=== PATIENT | female | born 1980 | race Caucasian/White ===

== ENCOUNTER 2017-05-29 23:33 | Emergency (ER) | payer BC, SELFPAY ==
[2017-05-29 23:39] VITALS: BP 155/89; PULSE 112; RESP 18; TEMP 36.4; O2SAT 98; BMI 25.8
--- NOTE | 2017-05-30 00:01 | HMH.EDGENADL ---
ED Disposition Clinical Impression: Headache Qualifiers: Headache type: unspecified Headache chronicity pattern: acute headache Intractability: not intractable Qualified Code(s): R51 - Headache Disposition: Home, Self-Care Condition on Discharge: Good Instructions: DI for Headache Additional Instructions: call pcp in am - Critical Care Critical Care Time: No Attestation: On 05/29/17, the high probability of a clinically significant, sudden or life threatening deterioration of the following system(s) required my full and direct attention, intervention and personal management. The time I documented below is in addition to time spent performing reported procedures but includes the following listed in this critical care notation. Medical Decision Making - Medical Records Medical records reviewed: Yes: I reviewed the patient's medical records. Vital Signs: 05/29/17 23:39 Temperature 97.6 F Temperature Source Oral Pulse Rate [Right Radial] 112 H Respiratory Rate 18 Blood Pressure [Right Arm] 155/89 Blood Pressure Mean [Right Arm] 111 Blood Pressure Source [Right Arm] Automatic Cuff Blood Pressure Position [Right Arm] Sitting 02 Sat by Pulse Oximetry 98 Oxygen Delivery Method Room Air - Fahad Inquiry Pt receiving controlled substance: No General Adult HPI - General Chief complaint: PAIN Stated complaint: Migrane Headache Time Seen by Provider: 05/30/17 00:01 Mode of Arrival: Ambulatory Source of Information: Patient, Spouse, Medical Record Limitations: No Limitations Description of Symptoms (Recalled from ER Triage Doc. by RN): PT REPORTS MIGRAINE SINCE 7PM, WITH NAUSEA - History of Present Illness HPI narrative: pt with hx of migraine with acute episode tonight with no new sx and no focal changes with no fever/rash or trauma Onset (ago): hour(s) Location: head Quality: sharp - Related Data Home Medications Medication Instructions Recorded Confirmed No Known Home Medications [No 05/29/17 05/29/17 Known Home Medications] Allergies Allergy/AdvReac Type Severity Reaction Status Date / Time No Known Allergies Allergy Verified 05/29/17 23:48 [facility] History I have reviewed the patient's past medical history: Yes - *Social History Alcohol Intake: never - Psychiatric History Expresses thoughts of harming self/others: None Suicide Plan Description: No Plan ROS Obtained: Yes All systems reviewed & no additional complaints except as noted - Constitutional Denies fever(s) - Eyes Denies change in vision - ENT Denies sore throat - Cardiovascular Denies chest pain - Respiratory Denies cough - Gastrointestinal Denies abdominal pain - Integumentary/Breasts Denies rash - Neurologic Reports headache(s), Denies seizure-like activity, Denies loss of vision, Denies sensory deficit Physical Exam - General General appearance: alert, in no apparent distress - Head Head exam: normocephalic - Eye Eye exam: Present: PERRL, EOMI - ENT ENT exam: Present: normal oropharynx - Neck Neck exam: Present: full ROM - Respiratory Respiratory exam: Absent: respiratory distress - Cardiovascular Cardiovascular exam: Present: regular rate - Abdominal Exam Abdominal exam: Present: soft - Extremities Exam Extremities exam: Present: full ROM - Back Exam Back exam: Present: full ROM - Neurological Exam Neurological exam: Present: alert, oriented X3, CN II-XII intact - Psychiatric Psychiatric exam: Present: normal affect - Skin Skin exam: Present: intact
--- NOTE | 2017-05-30 00:04 | ED_ITS ---
ED Disposition Clinical Impression: Headache Qualifiers: Headache type: unspecified Headache chronicity pattern: acute headache Intractability: not intractable Qualified Code(s): R51 - Headache Disposition: Home, Self-Care Condition on Discharge: Good Instructions: DI for Headache Additional Instructions: call pcp in am - Critical Care Critical Care Time: No Attestation: On 05/29/17, the high probability of a clinically significant, sudden or life threatening deterioration of the following system(s) required my full and direct attention, intervention and personal management. The time I documented below is in addition to time spent performing reported procedures but includes the following listed in this critical care notation. Medical Decision Making - Medical Records Medical records reviewed: Yes: I reviewed the patient's medical records. Vital Signs: 05/29/17 23:39 Temperature 97.6 F Temperature Source Oral Pulse Rate [Right Radial] 112 H Respiratory Rate 18 Blood Pressure [Right Arm] 155/89 Blood Pressure Mean [Right Arm] 111 Blood Pressure Source [Right Arm] Automatic Cuff Blood Pressure Position [Right Arm] Sitting 02 Sat by Pulse Oximetry 98 Oxygen Delivery Method Room Air - Fahad Inquiry Pt receiving controlled substance: No General Adult HPI - General Chief complaint: PAIN Stated complaint: Migrane Headache Time Seen by Provider: 05/30/17 00:01 Mode of Arrival: Ambulatory Source of Information: Patient, Spouse, Medical Record Limitations: No Limitations Description of Symptoms (Recalled from ER Triage Doc. by RN): PT REPORTS MIGRAINE SINCE 7PM, WITH NAUSEA - History of Present Illness HPI narrative: pt with hx of migraine with acute episode tonight with no new sx and no focal changes with no fever/rash or trauma Onset (ago): hour(s) Location: head Quality: sharp - Related Data Home Medications Medication Instructions Recorded Confirmed No Known Home Medications [No 05/29/17 05/29/17 Known Home Medications] Allergies Allergy/AdvReac Type Severity Reaction Status Date / Time No Known Allergies Allergy Verified 05/29/17 23:48 [facility] History I have reviewed the patient's past medical history: Yes - *Social History Alcohol Intake: never - Psychiatric History Expresses thoughts of harming self/others: None Suicide Plan Description: No Plan ROS Obtained: Yes All systems reviewed & no additional complaints except as noted - Constitutional Denies fever(s) - Eyes Denies change in vision - ENT Denies sore throat - Cardiovascular Denies chest pain - Respiratory Denies cough - Gastrointestinal Denies abdominal pain - Integumentary/Breasts Denies rash - Neurologic Reports headache(s), Denies seizure-like activity, Denies loss of vision, Denies sensory deficit Physical Exam - General General appearance: alert, in no apparent distress - Head Head exam: normocephalic - Eye Eye exam: Present: PERRL, EOMI - ENT ENT exam: Present: normal oropharynx - Neck Neck exam: Present: full ROM - Respiratory Respiratory exam: Absent: respiratory distress - Cardiovascular Cardiovascular exam: Present: regular rate - Abdom
== END 2017-05-30 00:26 | disposition home or self-care (01) ==
PROVIDERS: Emergency Provider Emergency Medicine
DX: R51 Headache (principal)
CPT/HCPCS: 96372; 99282; J0595

== ENCOUNTER 2020-05-30 15:28 | Emergency (ER) | payer BC, SELFPAY ==
[2020-05-30 15:40] VITALS: BP 133/87; PULSE 89; RESP 18; TEMP 36.9; O2SAT 98; BMI 29.2
--- NOTE | 2020-05-30 16:36 | HMH.EDUTC ---
[facility] [place] Disposition Clinical Impression: Strep throat Disposition: Home, Self-Care Condition on Discharge: Good Instructions: DI for Strep Throat, Strep Throat Additional Instructions: *Monitor Temp, Over the counter Motrin or Tylenol as directed/as needed Tylenol every 4 hours and Motrin every 6 hours (as long as your family doctor has told you that you can take it) for fever or pain. and straight to ER if unable to lower temp less than 101.0 after medication given *Warm salt water gargles may help to soothe the throat *Throat Lozenges *Warm fluids like tea with honey may help to soothe the throat *Sleep elevated *Humidifier/Vaporizer *If you did not take Penicillin shot or was unable to, start taking antibiotic immediately and make sure that you take it for the FULL length of time although you should start to feel better in 24-48 hours *change toothbrush and toothpaste 24-48 hours after starting to take antibiotics so you do not reinfect yourself Monitor Temp. Tylenol and/or Ibuprofen as needed. ER if fever is no less than 101 despite alternating Tylenol and Ibuprofen * Encourage fluids, water, Gatorade, powerade, pedialyte if infant/toddler/or child *Cold fluids, popsicles and ice cream may feel good on his throat Follow up IMMEDIATELY for new or worsening symptoms or no Noticeable improvement over the next 48-72 hours. 911 for difficulty breathing or swallowing Prescriptions: Amoxicillin [Amoxicillin 500mg Cap] 500 mg PO BID 10 Days #20 cap Transmission Status: Pending to [facility] Referrals: PCP,No [Primary Care Provider] - As needed Time of Disposition: 16:47 Medical Decision Making - Fahad Inquiry Pt receiving controlled substance: No Fahad was queried for this patient: No Vital Signs: 05/30/20 15:40 Temperature 98.4 F Temperature Source Oral Pulse Rate [Left Brachial] 89 Respiratory Rate 18 Blood Pressure [Left Arm] 133/87 Blood Pressure Mean [Left Arm] 102 Blood Pressure Source [Left Arm] Automatic Cuff Blood Pressure Position [Left Arm] Sitting 02 Sat by Pulse Oximetry 98 Oxygen Delivery Method Room Air [facility] HPI - General Stated complaint: burning in chest, strep symptoms Time Seen by Provider: 05/30/20 16:36 Mode of Arrival: Ambulatory Source of Information: Patient Limitations: No Limitations Description of Symptoms (Recalled from Triage Doc. by RN): PATIENT C/O BURNING IN CHEST AND SORE THROAT X 2 DAYS HEENT Symptoms (Recalled from RN notes): Yes Resp Symptoms (Recalled from RN notes): No Skin Symptoms (Recalled from RN notes): No MS Symptoms (Recalled from RN notes): No Functional Status (Recalled from RN notes): WNL - History of Present Illness Provider Complaint: Patient states that she thinks she has strep throat States that she has been having burning feeling in her throat and chest area like she gets when she has strep throat States that today it was worse so she came in to get checked - Related Data Previous Rx's Medication Instructions Recorded Azithromycin [Z-Darwin 250mg Tab*] 250 mg PO UD DOSE PK #6 tab 05/10/19 Brompheniramine/Pseudoephed/Dm 5 ml PO Q6HP PRN #240 syrup 05/10/19 [Bromfed Dm Cough Syrup] predniSONE [Prednisone 20mg 20 mg PO BID 4 Days #8 tab 05/10/19 Tab] Amoxicillin [Amoxicillin 500mg 500 mg PO BID 10 Days #20 cap 05/30/20 Cap] Allergies Allergy/AdvReac Type Severity Reaction Status Date / Time No Known Allergies Allergy Verified 05/29/17 23:48 - Worker's Comp Is this a Worker's Comp case?: No [facility] History - Hepatitis A Screen Drug use history?: No High risk sexual behaviors?: No History of sexually transmitted infection?: No Currently employed?: No Childcare worker?: No Do you have indoor plumbing?: Yes Do you have electricity?: Yes Attestation statement:: This patient has been screened for Hepatitis A risk factors. I have reviewed the patient's past medical history: Yes Medical Hist
[2020-05-30 16:53] VITALS: BP 133/87; PULSE 89; RESP 18; TEMP 36.9; O2SAT 98
[2020-05-30 21:10] LABS: UTC Strep Screen (Rapid) Positive (Negative)
== END 2020-05-30 16:57 | disposition home or self-care (01) ==
PROVIDERS: Emergency Provider Nurse Practitioner
DX: J02.0 Streptococcal pharyngitis (principal); E11.9 Type 2 diabetes mellitus without complications
CPT/HCPCS: 87880; 99202; G0463

== ENCOUNTER 2020-06-03 14:33 | Emergency (ER) | payer BC, SELFPAY ==
[2020-06-03 15:10] VITALS: BP 132/90; PULSE 93; RESP 18; TEMP 36.9; O2SAT 100; BMI 27.4
--- NOTE | 2020-06-03 15:48 | HMH.EDUTC ---
[facility] [place] Disposition Clinical Impression: Encounter for laboratory testing for COVID-19 virus Disposition: Home, Self-Care Condition on Discharge: Good Instructions: DI for COVID-19 (Suspected or Confirmed ), COVID-19: Testing and Tracing, Preventing the Spread of Coronavirus Discharge Instructions Additional Instructions: *Monitor Temp, Over the counter Motrin or Tylenol as directed/as needed Tylenol every 4 hours and Motrin every 6 hours (as long as your family doctor has told you that you can take it) for fever or pain. and straight to ER if unable to lower temp less than 101.0 after medication given *Warm salt water gargles may help to soothe the throat *Throat Lozenges *Warm fluids like tea with honey may help to soothe the throat *Sleep elevated *Humidifier/Vaporizer Follow up IMMEDIATELY for new or worsening symptoms or no Noticeable improvement over the next 48-72 hours. 911 for difficulty breathing or swallowing You were tested for today for COVID19 your test result should be back in the next 24-48 hours, you may call to the [facility] to see if your test results are back in the next 48 hours [phone] [facility] hours are 9am-9pm You was given a handout with instructions for Self Quarantine and Self isolation for while you wait on test results and what to do if they are positive If you are positive the Health Dept will be contacting you also Referrals: PCP,No [Primary Care Provider] - As needed Forms: Work/School Release Time of Disposition: 15:49 Medical Decision Making - Fahad Inquiry Pt receiving controlled substance: No Fahad was queried for this patient: No Vital Signs: 06/03/20 15:10 Temperature 98.4 F Temperature Source Oral Pulse Rate [Right Brachial] 93 H Respiratory Rate 18 Blood Pressure [Right Arm] 132/90 Blood Pressure Mean [Right Arm] 104 Blood Pressure Source [Right Arm] Automatic Cuff Blood Pressure Position [Right Arm] Sitting 02 Sat by Pulse Oximetry 100 Oxygen Delivery Method Room Air Orders (Tests/Meds): ORDERS Category Date Time Status Covid-19 Nasal PCR ([facility]) Routine Lab 06/03/20 13:10 Received [facility] [place] HPI - General Stated complaint: covid test Time Seen by Provider: 06/03/20 15:48 Mode of Arrival: Ambulatory Source of Information: Patient Limitations: No Limitations Description of Symptoms (Recalled from Triage Doc. by RN): PATIENT C/O BODY ACHES, SORE THROAT, FATIGUE, AND NO TASTE/SMELL X 1 WEEK HEENT Symptoms (Recalled from RN notes): No Resp Symptoms (Recalled from RN notes): No Skin Symptoms (Recalled from RN notes): No MS Symptoms (Recalled from RN notes): No Functional Status (Recalled from RN notes): WNL - History of Present Illness Provider Complaint: Patient states that she was dx with strep throat and just finished antiboitics States that she loss her sense of taste and smell about a week ago and thought it may have been due to sinus infection but after and daughter started having similar symptoms she wanted to get tested for COVID - Related Data Allergies Allergy/AdvReac Type Severity Reaction Status Date / Time No Known Allergies Allergy Verified 05/29/17 23:48 - Worker's Comp Is this a Worker's Comp case?: No [facility] History - Hepatitis A Screen Drug use history?: No High risk sexual behaviors?: No History of sexually transmitted infection?: No Currently employed?: No Childcare worker?: No Do you have indoor plumbing?: Yes Do you have electricity?: Yes Attestation statement:: This patient has been screened for Hepatitis A risk factors. I have reviewed the patient's past medical history: Yes Medical History: Reports:: Diabetes Mellitus Type 2 - Social History Alcohol Intake: never Occupational Status: other ROS Obtained: Yes All systems reviewed & no additional complaints, Yes Systems reviewed as appropriate & no additional complaints - Constitutional Constitutional: Reports system reviewed and no additional complaints, except a
[2020-06-03 15:49] VITALS: BP 132/90; PULSE 93; RESP 18; TEMP 36.9; O2SAT 100
--- NOTE | 2020-06-04 10:56 | PC.NURSE ---
PT NOTIFIED OF POSITIVE COVID RESULT
== END 2020-06-03 15:50 | disposition home or self-care (01) ==
PROVIDERS: Emergency Provider Nurse Practitioner
DX: U07.1 COVID-19 (principal)
CPT/HCPCS: 99202; G0463; U0003

== ENCOUNTER 2021-10-24 21:41 | Emergency (ER) | payer BC, SELFPAY ==
[2021-10-24 21:42] VITALS: BP 148/95; PULSE 125; RESP 18; TEMP 36.8; O2SAT 98; BMI 25.0
[2021-10-24 21:58] LABS: Coronavirus 19, PCR Not Detected (NotDetected); Influenza A, PCR Not Detected (NotDetected); Influenza B, PCR Not Detected (NotDetected); Microscopic, Urine URINE MICROSCOPIC (MICROSCOPIC)
--- NOTE | 2021-10-24 21:58 | XR_ITS ---
PROCEDURE INFORMATION: Exam: XR Chest Exam date and time: 10/24/2021 10:20 PM Age: 41 years old Clinical indication: Cough and other: Congestion TECHNIQUE: Imaging protocol: XR of the chest. Views: 2 views. COMPARISON: No relevant prior studies available. FINDINGS: Lungs: No consolidation. Probable small granuloma within RIGHT lung base. Pleural spaces: No significant pleural effusion. No pneumothorax. Heart/Mediastinum: No cardiomegaly. Bones/joints: No displaced fracture. Soft tissues: Unremarkable. Intraperitoneal space: Surgical clips within RIGHT upper quadrant. IMPRESSION: No definite acute cardiopulmonary disease. If symptoms persist, consider CT for further evaluation.
--- NOTE | 2021-10-24 22:45 | HMH.EDSOB ---
ED Disposition Clinical Impression: Bronchitis Disposition: Home, Self-Care Condition on Discharge: Good Instructions: DI for Acute Bronchitis Additional Instructions: fluids and use meds and see pcp for follow up Prescriptions: Benzonatate [Benzonatate 100mg cap] 100 mg PO TID #21 cap Transmission Status: Pending to [facility] levoFLOXacin [Levaquin 500mg tab] 500 mg PO DAILY #7 tab Transmission Status: Pending to [facility] Referrals: Provider,Referral, [Primary Care Provider] - - Critical Care Critical Care Time: No Attestation: On 10/24/21, the high probability of a clinically significant, sudden or life threatening deterioration of the following system(s) required my full and direct attention, intervention and personal management. The time I documented below is in addition to time spent performing reported procedures but includes the following listed in this critical care notation. Medical Decision Making - Medical Records Medical records reviewed: Yes: I reviewed the patient's medical records. - Fahad Inquiry Pt receiving controlled substance: No Vital Signs: 10/24/21 21:42 Temperature 98.3 F Temperature Source Oral Pulse Rate [Right] 125 H Respiratory Rate 18 Blood Pressure [Right Arm] 148/95 H Blood Pressure Mean [Right Arm] 112 02 Sat by Pulse Oximetry 98 - Lab Data Lab results reviewed: Yes: I reviewed the patient's lab results. Lab Results 10/24/21 21:47: Urine Color Yellow, Urine Appearance Clear, Urine pH 5.0, Ur Specific [place] 1.015, Urine Protein Negative, Urine Glucose (UA) 3+, Urine Ketones Negative, Urine Blood Trace-i, Urine Nitrate Negative, Urine Bilirubin Negative, Urine Urobilinogen 0.2, Ur Leukocyte Esterase Negative, Urine RBC Occasional, Urine WBC 3-5, Ur Squamous Epith Cells 10-20, Urine Bacteria 1+ 10/24/21 21:47: SARS-CoV-2 (PCR) Not detected, Influenza A Untype (PCR) Not detected, Influenza Type B (PCR) Not detected Orders (Tests/Meds): ED MEDICATIONS Generic Name Dose Route Start Last Admin Trade Name Freq PRN Reason Stop Dose Admin Benzonatate 100 mg 10/24/21 23:15 Benzonatate 100mg Capsule PO 11/23/21 23:14 ONCE TAMMY Discontinued Medications Generic Name Dose Route Start Last Admin Trade Name Marcos PRN Reason Stop Dose Admin Levofloxacin 500 mg 10/24/21 23:07 Levofloxacin 500mg Tab PO 10/24/21 23:08 ONCE ONE Prednisone 20 mg 10/24/21 23:07 Prednisone 20mg Tab PO 10/24/21 23:08 ONCE ONE ORDERS Category Date Time Status CMP [Comprehensive Metabolic Panel] Stat Lab 10/24/21 22:42 Received Complete Blood Count Auto Diff Stat Lab 10/24/21 22:42 Received Hemoglobin A1C Stat Lab 10/24/21 22:42 Received - Radiology Data #1 Image(s): Chest Image Reviewed: Yes I have reviewed radiologist's interpretation Preliminary Findings: Normal/NAD, Abnormal Medical Decision Narrative: acute bronchitis with cough and diabetes Resp/SOB HPI - General Chief Complaint: Upper Respiratory Infection Stated Complaint: cough and back pain Time Seen by Provider: 10/24/21 22:45 Mode of Arrival: Ambulatory Source of Information: Patient, Spouse, Medical Record Limitations: No Limitations Description of Symptoms (Recalled from ER Triage Doc. by RN): pt c/o cough x 3weeks and today woke up with pain in between shoulder. pt states she feel like she has pneumonia - History of Present Illness prod cough and congestion over the last few weeks with hx of tob use and diabetes MD Complaint: shortness of breath, anxiety Onset (ago): week(s) Severity: moderate Known history of: diabetes Associated symptoms: cough - Related Data Home oxygen amount: none Previous Rx's Medication Instructions Recorded Benzonatate [Benzonatate 100mg 100 mg PO TID #21 cap 10/24/21 cap] levoFLOXacin [Levaquin 500mg 500 mg PO DAILY #7 tab 10/24/21 tab] Allergies
[2021-10-24 22:46] LABS: Appearance,Urine CLEAR (Clear); Bilirubin,Urine Negative (Negative); Blood, Urine TRACE-I (Negative); Color,Urine YELLOW (Yellow); Glucose,Urine (UA) 3+ (Negative); Ketones,Urine Negative (Negative); Leukocyte Esterase,Urine Negative (Negative); Nitrate,Urine Negative (Negative); Protein,Urine Negative (Negative); Specific Gravity, Urine 1.015 (1.005-1.030); Urobilinogen,Urine 0.2 EU/dl (0.2)
[2021-10-24 22:59] LABS: Bacteria,Urine 1+ /lpf; RBC,Urine Occasional #/hpf (0-3)
[2021-10-24 23:07] LABS: Chloride 95 mmol/L (98-107); Potassium 4.1 mmoL/L (3.5-5.1); Sodium 132 mmol/L (136-145)
[2021-10-24 23:08] LABS: Basophils # 0.2 K/mm3 (0-0.2); Basophils % 1.6 % (0.1-2.0); Eosinophils # 0.1 K/mm3 (0.0-0.4); Eosinophils % 1.2 % (0.1-12.0); Hematocrit 46.8 % (37.0-47.0); Hemoglobin 16.4 g/dL (12.2-16.2); Lymphocytes # 3.5 K/mm3 (0.7-4.5); Lymphocytes % 29.7 % (10-50); Mean Corpuscular Hemoglobin 32.4 pg (27.0-31.2); Mean Corpuscular Volume 92.5 fl (81-99); Mean Platelet Volume 10.4 fl (7.4-10.4); Monocytes # 0.5 K/mm3 (0.1-1.0); Monocytes % 4.6 % (1.7-9.3); Neutrophils # 7.3 K/mm3 (1.8-7.8); Neutrophils % 62.9 % (37.0-80.0); Platelet Count 217 K/mm3 (142-424); Red Blood Count 5.06 M/mm3 (4.20-5.40); Red Cell Distribution Width 13.7 % (11.5-17.5); White Blood Count 11.6 K/mm3 (4.8-10.8)
[2021-10-24 23:09] LABS: Alanine Aminotransferase 38 U/L (12-78); Blood Urea Nitrogen 7 mg/dl (7-17); Creatinine Clearance Estimated 162 mL/min (50-200); Estimated Glomerular Filt Rate 137 ml/min (>60); GFR (African American) 166 ML/MIN (>60)
[2021-10-24 23:10] LABS: Albumin Level 4.7 g/dl (3.5-5.0); Albumin/Globulin Ratio 1.4 (1.1-1.8); Alkaline Phosphatase 123 U/L (38-126); Anion Gap 17.1 mEq/L (5-15); Aspartate Amino Transferase 35 U/L (14-36); Bilirubin,Total 0.6 mg/dl (0.2-1.3); Calcium 9.9 mg/dl (8.4-10.2); Carbon Dioxide 24 mmol/L (22.0-30.0); Globulin 3.4 g/dL (1.3-3.2); Glucose 384 mg/dl (74-100); Total Protein,Serum 8.1 g/dl (6.3-8.2)
[2021-10-24 23:22] VITALS: BP 134/74; PULSE 100; RESP 18; TEMP 36.8; O2SAT 98
[2021-10-24 23:27] LABS: Hemoglobin A1C 10.4 % (4.0-6.0)
[2021-10-24 23:39] LABS: HDL Cholesterol 39 mg/dl (40-60)
[2021-10-24 23:49] LABS: Chol/HDL Ratio 11.3 (1-3.5); Cholesterol 439 mg/dl (140-200); Triglycerides 1346 mg/dl (30-150)
[2021-10-24 23:50] LABS: Direct LDL Cholesterol 65.19 mg/dL (100-129)
[2021-10-24 23:58] LABS: Free T4 (Free Thyroxine) 1.16 ng/dl (0.78-2.19)
[2021-10-25 00:11] LABS: Thyroid Stimulating Hormone 1.97 uIU/mL (0.465-4.68)
== END 2021-10-24 23:23 | disposition home or self-care (01) ==
PROVIDERS: Emergency Provider Emergency Medicine
DX: J20.9 Acute bronchitis, unspecified (principal); E11.9 Type 2 diabetes mellitus without complications
CPT/HCPCS: 71046; 80053; 80061; 81001; 83036; 84439; 84443; 85025; 99283; C9803; U0003; U0005

== ENCOUNTER 2022-03-30 14:38 | Emergency (ER) | payer BC, SELFPAY ==
[2022-03-30 14:40] VITALS: BP 160/95; PULSE 149; RESP 18; TEMP 36.7; O2SAT 97; BMI 22.8
[2022-03-30 15:00] VITALS: BP 150/126; PULSE 142; RESP 18; O2SAT 100
--- NOTE | 2022-03-30 15:04 | HMH.EDGENADL ---
Discharge Plan Disposition Patient Disposition: Home, Self-Care Condition: Good Prescriptions Prescriptions: New sulfamethoxazole-trimethoprim [Bactrim DS] 800-160 mg tablet 1 tab PO BID Qty: 20 0RF hydrocodone-acetaminophen 5-325 mg tablet 1 tab PO Q6H PRN (Reason: pain) Qty: 10 0RF No Action levofloxacin 500 MG tablet 500 mg PO DAILY Qty: 7 0RF benzonatate 100 MG capsule 100 mg PO TID Qty: 21 0RF Referrals Follow up/Referrals: Provider,Referral, [Primary Care Provider] - See instructions Activity Restrictions/Add. Instructions Additional Instructions/Restrictions: Bactrim DS as prescribed. [place] as needed for pain. Additional instructions for ABSCESS: Day one and two: Remove the bandage and shower the area, leaving the packing in place. Gently blot dry. Apply a bandage. Day three: Follow-up with primary care physician, clinic, or Urgent Treatment Center for packing removal and culture results. The urgent treatment center is open from 8 AM to 8 PM every day. Return to the emergency department if increasing pain, swelling, redness, red streaks or fever greater than 101 degrees. Additional instructions for CONTROLLED SUBSTANCES: You have been prescribed a medication that is a controlled substance. Controlled substances include pain medications known as opiates and sedative nerve medications known as benzodiazepines. Tramadol, fioricet, and gabapentin are also controlled substances. Some common opiates include: Codeine (such as Tylenol #3) Hydrocodone (Vicodin, Lortab, Lorcet, [place]) Oxycodone (Percocet, Percodan, Oxycodone, Oxy IR) Some common benzodiazepines include: Diazepam (Valium) Lorazepam (Ativan) Alprazolam (Xanax) Clonazepam (Klonopin) Oxazepam (Serax) All of these controlled substances are highly addictive and frequently abused. Misuse can and frequently does lead to addiction as well as overdose and . Medication should be stored in a locked cabinet or other secure storage unit. Do not store the medication in a motor vehicle. Short term supplies, 3 days or less, are prescribed because of the highly addictive nature of the medication. Any of the controlled substance medication NOT taken should be disposed of properly and NOT SAVED. The recommended method of disposing of unused medications is: Place the medicines in a sealable plastic bag. If the medicine is a solid, crush it or add water to dissolve it. Add something undesirable (cat litter, coffee grounds, etc.) Dispose of sealed bag in household trash Do not flush or pour unused medicines down a sink or drain. Controlled substances should not be shared, given away or sold. Because of the addictive nature and frequent abuse, these medications are sometimes stolen. These medications should be kept in a safe place where they cannot be stolen. Do not keep them in your car or purse. Lost or stolen prescriptions for controlled substances WILL NOT BE REFILLED in this emergency department, regardless of whether a police report was filed. Clinical Impressions Clinical Impression: Cutaneous abscess Instructions Patient Instructions: DI for Skin Abscess Discharge ED Provider: Bartolo Moran General Adult HPI General Chief complaint: Skin/Abscess/Foreign Body Stated complaint: Bite under right breast on rib cage Time Seen by Provider: 03/30/22 14:54 Mode of Arrival: Ambulatory Source of Information: Patient Limitations: No Limitations Description of Symptoms (Recalled from ER Triage Doc. by RN): c/o a knot that came up under her right breast 7 days ago that opened up yesterday and had large amout of drainage. Now skin is open around area with black spots noted t/o sore. PT is unsure the cause. States that it has had fever in this area with pain. Pt thought it was boil at first and has been using warm compresses. History of Present Illness HPI narrative: 1 week history of sore on her anteri
[2022-03-30 15:31] VITALS: BP 132/94; PULSE 144; RESP 20; O2SAT 98
[2022-03-30 16:30] VITALS: BP 122/82; PULSE 118; RESP 16; TEMP 36.7; O2SAT 98
[2022-03-30 16:35] VITALS: BP 122/82; PULSE 118; RESP 20; O2SAT 98
== END 2022-03-30 16:31 | disposition home or self-care (01) ==
PROVIDERS: Emergency Provider Emergency Medicine
DX: L02.213 Cutaneous abscess of chest wall (principal); B95.62 Methicillin resistant Staphylococcus aureus infection as the cause of diseases classified elsewhere; Z16.11 Resistance to penicillins; Z16.39 Resistance to other specified antimicrobial drug; E78.5 Hyperlipidemia, unspecified; I10 Essential (primary) hypertension
CPT/HCPCS: 10060; 87070; 87077; 87186; 87205; 99283

== ENCOUNTER → 2022-04-30 13:26 | Outpatient (CLI) | payer BC, SELFPAY ==
[2022-04-30 13:32] LABS: Microscopic, Urine URINE MICROSCOPIC (MICROSCOPIC)
[2022-04-30 14:07] LABS: Basophils # 0.1 K/mm3 (0-0.2); Basophils % 0.7 % (0.1-2.0); Eosinophils # 0.2 K/mm3 (0.0-0.4); Hematocrit 42.9 % (37.0-47.0); Hemoglobin 14.2 g/dL (12.2-16.2); Lymphocytes % 31.6 % (10-50); Mean Corpuscular HGB Conc 33.2 g/dL (31.8-35.4); Mean Corpuscular Hemoglobin 30.7 pg (27.0-31.2); Mean Corpuscular Volume 92.4 fl (81-99); Mean Platelet Volume 9.7 fl (7.4-10.4); Monocytes # 0.5 K/mm3 (0.1-1.0); Monocytes % 4.7 % (1.7-9.3); Neutrophils # 5.9 K/mm3 (1.8-7.8); Platelet Count 175 K/mm3 (142-424); Red Blood Count 4.64 M/mm3 (4.20-5.40); Red Cell Distribution Width 13.7 % (11.5-17.5); White Blood Count 9.6 K/mm3 (4.8-10.8)
[2022-04-30 14:08] LABS: Appearance,Urine CLEAR (Clear); Bilirubin,Urine Negative (Negative); Blood, Urine Negative (Negative); Color,Urine YELLOW (Yellow); Glucose,Urine (UA) TRACE (Negative); Ketones,Urine Negative (Negative); Leukocyte Esterase,Urine Negative (Negative); Nitrate,Urine Negative (Negative); Protein,Urine Negative (Negative); Urobilinogen,Urine 0.2 EU/dl (0.2)
[2022-04-30 14:18] LABS: Hemoglobin A1C 10.4 % (4.0-6.0)
[2022-04-30 14:27] LABS: Bacteria,Urine Trace /lpf; Squamous Epithelial Cell,Urine Occasional #/hpf (0-5)
[2022-04-30 15:56] LABS: Alanine Aminotransferase 20 U/L (12-78); Albumin Level 4.1 g/dl (3.5-5.0); Albumin/Globulin Ratio 1.6 (1.1-1.8); Alkaline Phosphatase 128 U/L (38-126); Anion Gap 13.1 mEq/L (5-15); Aspartate Amino Transferase 18 U/L (14-36); Bilirubin,Total 0.3 mg/dl (0.2-1.3); Blood Urea Nitrogen 12 mg/dl (7-17); Calcium 9.4 mg/dl (8.4-10.2); Carbon Dioxide 30 mmol/L (22.0-30.0); Chloride 100 mmol/L (98-107); Cholesterol 240 mg/dl (140-200); Estimated Glomerular Filt Rate 178 ml/min (>60); GFR (African American) 215 ML/MIN (>60); Globulin 2.6 g/dL (1.3-3.2); Glucose 200 mg/dl (74-100); HDL Cholesterol 30 mg/dl (40-60); Potassium 4.1 mmoL/L (3.5-5.1); Sodium 139 mmol/L (136-145); Total Protein,Serum 6.7 g/dl (6.3-8.2)
[2022-04-30 16:07] LABS: Direct LDL Cholesterol 75.49 mg/dL (100-129)
[2022-04-30 16:15] LABS: Triglycerides 596 mg/dl (30-150)
[2022-04-30 17:04] LABS: Vitamin B12 621 pg/mL (239-931)
[2022-04-30 17:11] LABS: Folate 8.44 ng/mL
== END ==
PROVIDERS: PCP Family Medicine; Visit Provider Family Medicine
DX: E11.9 Type 2 diabetes mellitus without complications (principal); L02.91 Cutaneous abscess, unspecified; E78.5 Hyperlipidemia, unspecified; G47.00 Insomnia, unspecified; G62.9 Polyneuropathy, unspecified; I10 Essential (primary) hypertension; Z79.4 Long term (current) use of insulin
CPT/HCPCS: 36415; 80053; 80061; 81001; 82607; 82746; 83036; 84443; 85025

== ENCOUNTER → 2022-05-07 11:44 | Outpatient (CLI) | payer BC, SELFPAY ==
[2022-05-07 12:49] VITALS: BMI 26.6
== END ==
PROVIDERS: PCP Family Medicine; Visit Provider Family Medicine
DX: E11.9 Type 2 diabetes mellitus without complications (principal); Z71.3 Dietary counseling and surveillance
CPT/HCPCS: 97802

== ENCOUNTER → 2022-08-09 12:08 | Outpatient (CLI) | payer BC, SELFPAY ==
[2022-08-09 13:09] LABS: Alanine Aminotransferase 28 U/L (12-78); Albumin Level 4.3 g/dl (3.5-5.0); Albumin/Globulin Ratio 1.8 (1.1-1.8); Alkaline Phosphatase 78 U/L (38-126); Anion Gap 11.4 mEq/L (5-15); Aspartate Amino Transferase 22 U/L (14-36); Bilirubin,Total 0.5 mg/dl (0.2-1.3); Blood Urea Nitrogen 10 mg/dl (7-17); Calcium 9.1 mg/dl (8.4-10.2); Carbon Dioxide 29 mmol/L (22.0-30.0); Chloride 100 mmol/L (98-107); Chol/HDL Ratio 5.6 (1-3.5); Cholesterol 271 mg/dl (140-200); Estimated Glomerular Filt Rate 137 ml/min (>60); GFR (African American) 166 ML/MIN (>60); Globulin 2.4 g/dL (1.3-3.2); Glucose 140 mg/dl (74-100); HDL Cholesterol 48 mg/dl (40-60); Potassium 4.4 mmoL/L (3.5-5.1); Sodium 136 mmol/L (136-145); Total Protein,Serum 6.7 g/dl (6.3-8.2); Triglycerides 304 mg/dl (30-150); VLDL Cholesterol 61 mg/dL (0-40)
[2022-08-09 13:19] LABS: Direct LDL Cholesterol 146.98 mg/dL (100-129)
[2022-08-09 13:33] LABS: Hemoglobin A1C 7.9 % (4.0-6.0)
== END ==
PROVIDERS: PCP Family Medicine; Visit Provider Family Medicine
DX: E11.9 Type 2 diabetes mellitus without complications (principal); E78.5 Hyperlipidemia, unspecified; I10 Essential (primary) hypertension; Z79.4 Long term (current) use of insulin
CPT/HCPCS: 36415; 80053; 80061; 82043; 83036

== ENCOUNTER 2022-10-13 13:59 | Emergency (ER) | payer BC, SELFPAY ==
[2022-10-13 14:10] VITALS: PULSE 125; RESP 18; TEMP 37.2; O2SAT 99; BMI 26.9
--- NOTE | 2022-10-13 14:25 | EXP.UTC ---
Discharge Plan Disposition Patient Disposition: Home, Self-Care Condition: Good Prescriptions Prescriptions: New amoxicillin [amoxicillin] 875 mg tablet 875 mg PO Q12H Qty: 20 0RF No Action pantoprazole [Protonix] 40 mg tablet,delayed release (DR/EC) 40 mg PO DAILY naratriptan 2.5 mg tablet 2.5 mg PO Q4H PRN (Reason: migraine headache) Qty: 10 3RF Rx Instructions: do not exceed 2 doses per 24 hrs nystatin 100,000 unit/gram cream 1 applic topical BID Qty: 30 0RF amitriptyline 25 mg tablet 25 mg PO .COMPLEX Qty: 150 3RF Rx Instructions: 25 mg orally take 1 tablet in the day and 4 tablets at bedtime; acyclovir 400 mg tablet 400 mg PO BID (DME) pen needle, diabetic [BD Ultra-Fine Short Pen Needle] 31 gauge x 5/16 needle See Rx Instructions .ROUTE .COMPLEX Qty: 100 2RF Dose Instruction: USE DIRECTED Rx Instructions: USE DIRECTED insulin glargine [Lantus Solostar U-100 Insulin] 100 unit/mL (3 mL) insulin pen 80 unit SQ HS 90 Days Qty: 72 0RF fenofibrate nanocrystallized [Tricor] 145 mg tablet 145 mg PO DAILY 30 Days Qty: 30 3RF duloxetine 60 mg capsule,delayed release(DR/EC) See Rx Instructions .ROUTE .COMPLEX Qty: 30 2RF Dose Instruction: TAKE ONE CAPSULE BY MOUTH ONCE A DAY Rx Instructions: TAKE ONE CAPSULE BY MOUTH ONCE A DAY lisinopril 20 mg tablet See Rx Instructions .ROUTE .COMPLEX Qty: 30 2RF Dose Instruction: TAKE ONE TABLET BY MOUTH ONCE A DAY Rx Instructions: TAKE ONE TABLET BY MOUTH ONCE A DAY atorvastatin 40 mg tablet See Rx Instructions .ROUTE .COMPLEX Qty: 30 2RF Dose Instruction: TAKE ONE TABLET BY MOUTH ONCE A DAY Rx Instructions: TAKE ONE TABLET BY MOUTH ONCE A DAY Referrals Follow up/Referrals: Michelle Hoover APRN [Primary Care Provider] - See instructions Activity Restrictions/Add. Instructions Additional Instructions/Restrictions: Drink plenty of fluids. Take tylenol or ibuprofen for pain or fever. Take the medications as directed. Follow up with your regular doctor. GO TO THE ER FOR ANY WORSENING SYMPTOMS Throw your tooth brush away and get a new one. Clinical Impressions Clinical Impression: Strep throat Instructions Patient Instructions: Strep Throat, DI for Strep Throat Discharge ED Provider: Max Gonzalez [facility] [place] Stated complaint: Sore throat,Congestion Time Seen by Provider: 10/13/22 14:24 History of Present Illness Provider Complaint: She states that for the past 4 days she has had sore throat, sinus congestion and a cough. Related Data Home Medications Medication Instructions Recorded Confirmed pantoprazole 40 mg tablet,delayed 40 mg PO DAILY 04/03/22 08/29/22 release (Protonix) acyclovir 400 mg tablet 400 mg PO BID 08/29/22 08/29/22 Previous Rx's Medication Instructions Recorded naratriptan 2.5 mg tablet 2.5 mg PO Q4H PRN migraine 05/31/22 headache #10 tabs nystatin 100,000 unit/gram topical 1 applic topical BID #30 grams 05/31/22 cream pen needle, diabetic 31 gauge x ##100 07/25/22 5/16 (BD Ultra-Fine Short Pen Needle) amitriptyline 25 mg tablet 25 mg PO .COMPLEX #150 tabs 08/02/22 fenofibrate nanocrystallized 145 145 mg PO DAILY 30 days #30 tabs 08/09/22 mg tablet (Tricor) insulin glargine 100 unit/mL (3 80 unit (0.8 mL) SQ HS 90 days #72 08/09/22 mL) subcutaneous pen (Lantus mL Solostar U-100 Insulin) duloxetine 60 mg capsule,delayed See Rx Instructions .Route 08/28/22 release .COMPLEX #30 caps lisinopril 20 mg tablet See Rx Instructions .Route 08/28/22 .COMPLEX #30 tabs atorvastatin 40 mg tablet See Rx Instructions .Route 09/25/22 .COMPLEX #30 tabs amoxicillin 875 mg tablet 875 mg PO Q12H #20 tabs 10/13/22 Allergies Allergy/AdvReac Type Severity Reaction Status Date / Time sitagliptin [From Mayuv] Allergy Blister Verified 10/13/22 14:36 PFSH PFSH Dis
[2022-10-13 14:47] LABS: UTC Strep Screen (Rapid) Positive (Negative)
[2022-10-13 15:10] VITALS: BP 134/88; PULSE 125; RESP 18; TEMP 37.2; O2SAT 99
== END 2022-10-13 15:10 | disposition home or self-care (01) ==
PROVIDERS: Emergency Provider Nurse Practitioner Family; PCP Nurse Practitioner Family
DX: J02.0 Streptococcal pharyngitis (principal); R05.9 Cough, unspecified; E11.9 Type 2 diabetes mellitus without complications; Z79.4 Long term (current) use of insulin; Z87.891 Personal history of nicotine dependence
CPT/HCPCS: 87880; 99212; 99214; G0463

== ENCOUNTER 2023-06-05 12:31 | Outpatient (CLI) | payer BC, SELFPAY ==
[2023-06-05 12:33] LABS: Microscopic, Urine URINE MICROSCOPIC (MICROSCOPIC)
[2023-06-05 13:12] LABS: Appearance,Urine CLEAR (Clear); Bilirubin,Urine Negative (Negative); Blood, Urine Negative (Negative); Color,Urine YELLOW (Yellow); Glucose,Urine (UA) 3+ (Negative); Ketones,Urine TRACE (Negative); Leukocyte Esterase,Urine Negative (Negative); Nitrate,Urine Negative (Negative); PH,Urine 5.5 (5.0-8.5); Protein,Urine Negative (Negative); Specific Gravity, Urine 1.015 (1.005-1.030); Urobilinogen,Urine 0.2 EU/dl (0.2)
[2023-06-05 13:14] LABS: Basophils % 0.7 % (0.1-2.0); Eosinophils # 0.2 K/mm3 (0.0-0.4); Eosinophils % 2.5 % (0.1-12.0); Hematocrit 46.3 % (37.0-47.0); Hemoglobin 15.6 g/dL (12.2-16.2); Lymphocytes % 31.4 % (10-50); Mean Corpuscular HGB Conc 33.7 g/dL (31.8-35.4); Mean Corpuscular Hemoglobin 32.2 pg (27.0-31.2); Mean Corpuscular Volume 95.8 fl (81-99); Mean Platelet Volume 9.6 fl (7.4-10.4); Monocytes # 0.3 K/mm3 (0.1-1.0); Monocytes % 4.6 % (1.7-9.3); Neutrophils # 3.9 K/mm3 (1.8-7.8); Neutrophils % 60.7 % (37.0-80.0); Platelet Count 177 K/mm3 (142-424); Red Blood Count 4.84 M/mm3 (4.20-5.40); Red Cell Distribution Width 13.5 % (11.5-17.5); White Blood Count 6.4 K/mm3 (4.8-10.8)
[2023-06-05 13:20] LABS: Creatinine,Urine Random 29 mg/dL (Not Estab.)
[2023-06-05 13:24] LABS: Microalbumin/Creatinine Ratio 66.2
[2023-06-05 13:44] LABS: Chloride 94 mmol/L (98-107); Potassium 4.8 mmoL/L (3.5-5.1); Sodium 135 mmol/L (136-145)
[2023-06-05 13:46] LABS: Alanine Aminotransferase 134 U/L (12-78); Alkaline Phosphatase 136 U/L (38-126); Anion Gap 19.8 mEq/L (5-15); Aspartate Amino Transferase 83 U/L (14-36); Bilirubin,Total 0.6 mg/dl (0.2-1.3); Blood Urea Nitrogen 10 mg/dl (7-17); Carbon Dioxide 26 mmol/L (22.0-30.0); Estimated Glomerular Filt Rate 177 ml/min (>60); GFR (African American) 214 ML/MIN (>60)
[2023-06-05 13:47] LABS: Albumin Level 4.7 g/dl (3.5-5.0); Albumin/Globulin Ratio 1.5 (1.1-1.8); Calcium 9.8 mg/dl (8.4-10.2); Globulin 3.2 g/dL (1.3-3.2); Glucose 372 mg/dl (74-100); HDL Cholesterol 47 mg/dl (40-60); Iron 109 ug/dL (37-170); Total Protein,Serum 7.9 g/dl (6.3-8.2)
[2023-06-05 13:51] LABS: Amorphous Sediment,Urine 1+ /lpf; Squamous Epithelial Cell,Urine Occasional #/hpf (0-5)
[2023-06-05 13:59] LABS: Direct LDL Cholesterol 101.56 mg/dL (100-129)
[2023-06-05 14:03] LABS: Hemoglobin A1C 11.6 % (4.0-6.0)
[2023-06-05 14:05] LABS: Triglycerides 1340 mg/dl (30-150)
[2023-06-05 14:07] LABS: Chol/HDL Ratio 10.6 (1-3.5); Cholesterol 497 mg/dl (140-200)
[2023-06-05 14:13] LABS: Total Iron Binding Capacity 261 ug/dL (265-497)
[2023-06-05 14:18] LABS: Thyroid Stimulating Hormone 0.63 uIU/mL (0.465-4.68)
[2023-06-05 14:20] LABS: Free T4 (Free Thyroxine) 1.06 ng/dl (0.78-2.19)
[2023-06-05 14:22] LABS: Ferritin 352 ng/ml (6.24-137)
[2023-06-05 14:23] LABS: 25-OH Vitamin D, Total 24.2 ng/mL (30-100)
[2023-06-05 14:59] LABS: D-Dimer 0.32 ug/mL (0.0-0.5)
[2023-06-05 15:54] LABS: Vitamin B12 763 pg/mL (239-931)
== END 2023-06-05 23:59 ==
LOC: LAB.DROPOF 12:32 → LAB 14:00
PROVIDERS: PCP Nurse Practitioner Family; Referring Provider Internal Medicine; Visit Provider Nurse Practitioner Family
DX: R00.0 Tachycardia, unspecified (principal); I10 Essential (primary) hypertension; E78.5 Hyperlipidemia, unspecified; R53.83 Other fatigue; E11.40 Type 2 diabetes mellitus with diabetic neuropathy, unspecified; Z79.4 Long term (current) use of insulin; B96.89 Other specified bacterial agents as the cause of diseases classified elsewhere; E61.1 Iron deficiency
CPT/HCPCS: 36415; 80053; 80061; 81001; 82043; 82306; 82570; 82607; 82728; 82746; 83036; 83540; 83550; 84439; 84443; 85025; 85378; 87086; 93225

== ENCOUNTER 2023-06-07 08:05 | Outpatient (CLI) | payer BC, SELFPAY ==
[2023-06-07 08:58] LABS: Amylase 37 U/L (30-110); Lipase 74 U/L (23-300)
[2023-06-07 09:26] LABS: Gamma Glutamyl Transpeptidase 238 U/L (12-43)
[2023-06-08 09:10] LABS: HBsAg Screen Negative (Negative); HCV Ab Non Reactive (Non Reactive); Hep A Ab, IGM Negative (Negative); Hep B Core Ab, IgM Negative (Negative)
[2023-06-09 15:46] LABS: Alkaline Phosphatase 122 IU/L (44-121); Bone Fraction: 29 % (14-68); Intestinal Frac.: 4 % (0-18); Liver Fraction: 67 % (18-85)
== END 2023-06-07 23:59 ==
LOC: LAB 08:06
PROVIDERS: PCP Nurse Practitioner Family; Visit Provider Nurse Practitioner Family
DX: E11.40 Type 2 diabetes mellitus with diabetic neuropathy, unspecified (principal); E78.1 Pure hyperglyceridemia; R53.83 Other fatigue; R74.8 Abnormal levels of other serum enzymes; E78.5 Hyperlipidemia, unspecified; Z79.4 Long term (current) use of insulin
CPT/HCPCS: 36415; 80074; 82150; 82977; 83690; 84075; 84080; 86140

== ENCOUNTER 2023-06-11 08:26 | Outpatient (CLI) | payer BC, SELFPAY ==
--- NOTE | 2023-06-11 08:27 | US_ITS ---
FINAL REPORT CLINICAL HISTORY: elevated LFTs, suspected pancreatitis, DM, pain FINDINGS: Sonographic images of the abdomen were obtained. There is fatty infiltration of the liver. The gallbladder is absent. There is no evidence of biliary ductal dilatation. The common hepatic duct measures 3 mm, which is within normal limits. The pancreas is partially obscured. The spleen measures in the upper limits of normal in size at 12.7 cm. The right kidney measures 13.0 cm in length. The left kidney measures 11.5 cm in length. There is normal renal echogenicity. There is no evidence of hydronephrosis. The aorta has an unremarkable appearance. Limited images of the inferior vena cava are unremarkable. IMPRESSION: Fatty liver. Borderline splenomegaly. Reviewed, Interpreted and Dictated by Ad Borden III, MD Transcribed by Brandi Ott Authenticated and [facility]
== END 2023-06-11 23:59 ==
LOC: RAD 08:27
PROVIDERS: PCP Nurse Practitioner Family; Visit Provider Nurse Practitioner Family
DX: E11.40 Type 2 diabetes mellitus with diabetic neuropathy, unspecified (principal); E78.1 Pure hyperglyceridemia; E78.5 Hyperlipidemia, unspecified; K21.9 Gastro-esophageal reflux disease without esophagitis; R53.83 Other fatigue; R74.8 Abnormal levels of other serum enzymes; R79.89 Other specified abnormal findings of blood chemistry; Z79.4 Long term (current) use of insulin; Z79.84 Long term (current) use of oral hypoglycemic drugs
CPT/HCPCS: 76700

== ENCOUNTER 2023-06-12 12:27 | Outpatient (CLI) | payer BC, SELFPAY ==
[2023-06-12 13:35] LABS: Blood Urea Nitrogen 7 mg/dl (7-17); Estimated Glomerular Filt Rate 177 ml/min (>60); GFR (African American) 214 ML/MIN (>60)
== END 2023-06-12 23:59 ==
LOC: LAB 12:28
PROVIDERS: PCP Nurse Practitioner Family; Visit Provider Internal Medicine
DX: I10 Essential (primary) hypertension (principal); F17.290 Nicotine dependence, other tobacco product, uncomplicated
CPT/HCPCS: 36415; 82565; 84520

== ENCOUNTER 2023-06-18 12:01 | Outpatient (CLI) | payer BC, SELFPAY ==
[2023-06-18] VITALS (11 sets, daily range): BP systolic 81–110; BP diastolic 45–77; PULSE 68–84; RESP 18; O2SAT 96–100; BMI 24.9
--- NOTE | 2023-06-18 12:01 | CT_ITS ---
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 A noncontrast coronary calcium scan was performed. A CT attenuation threshold of 130 Hounsfield units (HU) was used for the detection of calcium in contiguous voxels of 1 sq mm in area to be counted as individual lesions. Bolus tracking in the ascending aorta with a threshold of 180 HU was performed. Immediately afterwards, ECG synchronized cardiac CT was then performed from the cardiac base to apex using retrospective gating with ECG tube current modulation. A total of 85 mL of Isovue 370 mg/mL contrast medium was administered at 5 mL/sec followed by a saline flush using a biphasic injection protocol. A tube voltage of 120 KVp was used. The patient received the following medications prior to the cardiac CT. 150 mg of oral metoprolol 15 mg of oral ivabradine 0.4 mg of sublingual nitroglycerin The average heart rate at the time of acquisition was 77 bpm and regular. Further administration of heart-rate controlling meds was precluded by marginal BPs. Image Reconstruction Transaxial images were reconstructed at 0.67 mm slide thickness. Data was reviewed interactively on an advanced workstation capable of 2 and 3-dimensional displays in all conventional reconstruction formats, including multiplanar reformations, maximum intensity projections, curved multiplanar reformations, and volume rendered reconstructions. When applicable, selected routine images describing the relevant coronary anatomy and pathology were saved and sent to PACS. Complications None Technical Quality Overall image quality was good. Coronary artery opacification was adequate. Total DLP (Dose-Length Product) is 997.8 mGy-cm. The reported value represents the total of one or more individual components during the CT acquisition of this date and at this time, and as such, the same value may appear in more than one CT report depending on the interpreting/reporting physicians. COMPARISON None FINDINGS CT Coronary Calcium Scoring LM (left main artery): n/a (see below) LAD (Left Anterior Descending) = 0 LCX (Left Coronary Circumflex) = 0 RCA (Right Coronary Artery) = 0 Total Calcium Score = 0 using the AJ-130 method. The interpretation of the calcium heart score is based on the following continuum*: 0 = no calcified plaque detected (risk of coronary artery disease is very low ??? less than 5%) 1-10 = calcium detected in extremely minimal levels (risk of coronary diseases is still low ??? less than 10%) 11-100 = mild levels of plaque detected with certainty (mild or minimal narrowing of heart arteries is likely) 101-400 = definite,at least moderate levels of plaque detected (relatively high risk of a heart attack within 3-5 years) >401-999 = extensive levels of plaque detected (high risk of heart attack, high levels of vascular disease are present, high likelihood of at least one significant coronary narrowing) *The calcium heart score quantifies the burden of coronary calcification/plaque in the coronary arteries. The calcium heart score is not able to evaluate the presence or burden of non-calcified (i.e. soft) plaque. There is no identifiable calcification in the aortic valve, mitral annulus or mitral valve, pericardium, or myocardium. Coronary CT Angiography The coronary arterial system is right dominant. Quantitative Stenosis Grading: Left Main (LM): The left main is absent. 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 Left Anterior Descending (LAD) and Diagonal Branches: The LAD originates directly from the left sinus of Valsalva. The LAD gives off 2 diagonal branches. The LAD and its branches are patent with no evidence of atherosclerosis. A mid-myocardial LAD bridge is present, measuring approximately 18 mm in length and 2 mm in depth. Left Circumflex (LCX) and Obtuse Marginals (OM): The LCX originates directly from the left sinus of Valsalva. The LCX gives off 2 Obtuse Marginal (OM) branches. Beyond the origin of the LCX, the vessel travels in a normal trajectory towards the anterolateral aspect of the myocardial wall. The LCX and its branches are patent with no evidence of atherosclerosis. Right Coronary Artery (RCA): The RCA originates normally from the right sinus of Valsalva. The RCA gives off a posterior descending artery (PDA) and posterolateral (PL) branches. The RCA and its branches are patent with no evidence of atherosclerosis. Non-Coronary Cardiac Findings: Analysis of the left ventricular (LV) structure and function was performed after 3-D reconstruction of the LV from axial images, with user-corrected automatic contouring for assessment of LV volumes and user-defined reconstruction from oblique planes for measurement of 3-D cardiac structure and function. LVEDV: 133 mL LVESV: 75 mL SV: 58 mL LVEF: 44% -The left ventricle is normal in size with mildly reduced left ventricular systolic function (LVEF 44%). -There is no left atrial appendage filling defect. Two right pulmonary veins and two left pulmonary veins drain normally into the left atrium. -No pericardial thickening or calcification. -Central and branch pulmonary arteries in the [id number] are unremarkable. -Thoracic aorta within the visualized thoracic aortic-branches in the [id number] is unremarkable. Extracardiac Structures No significant extra-cardiac findings. Note, however, that this study is focused on the cardiac findings. IMPRESSION -No coronary calcification with an Agatston score = 0 using the AJ-130 method. -No evidence of significant flow-limiting atherosclerosis of the coronary arteries. 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 -CAD-RADS 0. Management recommendations per ACC/AHA guidelines*, as clinically appropriate. -Mildly reduced LV systolic function (LVEF 44%). Correlate LVEF with TTE (and/or cardiac MRI) to evaluate for non-ischemic cardiomyopathy. *Recommendations: CAD RADS 0: Reassurance. Consider non-atherosclerotic causes of chest pain. CAD RADS 1: Consider non-atherosclerotic causes of chest pain. Consider preventive therapy and risk factor modification. CAD RADS 2: Consider non-atherosclerotic causes of chest pain. Consider preventive therapy and risk factor modification, particularly for patients with nonobstructive plaque in multiple segments. CAD RADS 3: Consider further functional testing. Consider symptom-guided anti-ischemic and preventive pharmacotherapy as well as risk factor modification per published guideline statements. CAD RADS 4A: Consider further functional testing or invasive coronary angiography with revascularization per published guideline statements. Consider symptom-guided anti-ischemic and preventive pharmacotherapy as well as risk factor modification per published guideline statements. CAD RADS 4B: Invasive coronary angiography recommended with revascularization per published guideline statements. Consider symptom-guided anti-ischemic and preventive pharmacotherapy as well as risk factor modification per published guideline statements. CAD RADS 5: Consider invasive angiography and/or viability assessment with revascularization per published guideline statements. Consider symptom-guided anti-ischemic and preventive pharmacotherapy as well as risk factor modification per published guideline statements. CRITICAL RESULT None COMMUNICATION Per this written report The coronary and cardiac findings of this CCTA were reviewed, reported, and signed by Jakub Mckay MD (Pay Per Click Strategist) Conclusion Electronically signed by : Shamika Mckay MD 06/19/2023 16:15:22
[2023-06-18] MEDS: IVABRADINE HCL 7.5MG TABLET *IVABRADINE+METOPROLOL REGIMINE 15 MG PO (12:37)
[2023-06-18] MEDS: METOPROLOL TARTRATE 50MG TABLET *IVABRADINE+METOPROLOL REGIMINE 75 MG PO ×2 (12:37→13:16)
--- NOTE | 2023-06-18 12:44 | PC.NURSE ---
Spoke w/ Dr Mckay to verify that it is ok to attempt to lower pt's HR from her current level in the 120's to the recommended below 60. He states that it should be fine and to use the usual medications.
[2023-06-18] MEDS: 0.9 % SODIUM CHLORIDE 1000ML 1,000 ML 999 ML IV (13:52)
--- NOTE | 2023-06-18 14:16 | CA_ITS ---
APPROVED REPORT EXAM: Comprehensive 2D, Doppler, and color-flow Echocardiogram Digital Forensics Examiner: SAQIB Moreno, RVS Ht: 5 ft 4 in Wt: 145lbs BSA: 1.71 BP: 131/89 mmHg Indications: Tachycardia, DM, Smoker, HTN, HLD 2D Dimensions IVSd 0.66 cm LVEF (Visual) 41.90 % PWd 0.79 cm LA Volume 22.70 mL LVDd 3.82 cm LA Volume Index 13.00 mL/m2 (M/F) 16-34 LVDs 3.05 cm Left Atrium 2.64 cm M-Mode Dimensions LA Diam 3.11 cm (1.9-4.0) LVDd 4.56 cm (3.5-5.7) LVDs 3.09 cm (3.5-5.7) EF (Teich) 60.60% EPSs 0.84 cm FS 32.20% EDV (Teich) 95.40 mL TAPSE 1.28 (<1.7) ESV (Teich) 37.60 mL LV Diastology E Decel Time 200 (160-240 msec) E/A Ratio 2.19 MED A' 7.00 cm/s LAT A' 4.30 cm/s Aortic Valve JALEN Index 1.01 cm2/m2 AoV Peak Corbin. 103.0 (50-130 cm/s) AO Peak GR. 4.20 mmHg AO Mean GR. 2.10 (<5 mmHg) AO VTI 19.4 (18-25 cm) JALEN (VTI) 1.76 (2.5-4.5 cm2) Mitral Valve MV A Velocity 43.0 (40-130 cm/s) E/A Ratio 2.19 MV Mean Gr. 1.60 (<2mmHg) Tricuspid Valve TR P. Velocity 203.00 cm/s RAP Estimate 10.00 mmHg RVSP 26.50 mmHg Left Ventricle The left ventricle is normal size. Left ventricular systolic function is mildly to moderately decreased. There is normal left ventricular wall thickness. There is mild to moderate global hypokinesis present. The left ventricular diastolic function is normal. LVEF is 40%. Right Ventricle The right ventricle is normal size. The right ventricular systolic function is normal. Atria The left atrium size is normal. The right atrium size is normal. There is no Doppler evidence of interatrial shunt. Aortic Valve The aortic valve is normal in structure. There is no aortic valvular stenosis. No aortic regurgitation is present. Mitral Valve The mitral valve is normal in structure. No evidence of mitral valve stenosis. Trace mitral regurgitation. Tricuspid Valve The tricuspid valve leaflets are thin and pliable. Trace tricuspid regurgitation. There is insufficient TR jet to estimate RVSP. Pulmonic Valve The pulmonary valve is normal in structure. Trace pulmonic regurgitation. Great Vessels The aortic root is normal in size. The ascending aorta is normal in size. IVC is normal in size and collapses >50% with inspiration. Pericardium There is no pericardial effusion. Other Information Study Quality: Fair Conclusion Mild to moderate reduction in LV systolic function (LVEF 40%). No significant valvular stenosis or regurgitation. In the setting of global reduction in LVEF, further evaluation for non-ischemic cardiomyopathy is recommended with cardiac MRI (cardiomyopathy protocol). Electronically signed by : Shamika Mckay MD 06/22/2023 13:35:11
[2023-06-18] MEDS: NITROGLYCERIN 0.4MG SL TABLET 0.400000000000000022 MG SL (14:19)
[2023-06-18] MEDS: 0.9 % SODIUM CHLORIDE 50 ML VIAL IV (14:28)
[2023-06-18] MEDS: IOPAMIDOL-370 (76%);100ML BOTTLE 85 ML IV (14:29)
--- NOTE | 2023-06-18 14:36 | PC.NURSE ---
Again spoke w/ Dr Mckay regarding pt's HR and BP. Determined to forego any additional Metoprolol and complete CTA w/ Pt's current HR.
--- NOTE | 2023-06-18 15:41 | MM_ITS ---
PROCEDURE INFORMATION: Exam: MG Bilateral Screening 3D Mammography Exam date and time: 06/18/2023 3:36 PM Age: 42 years old Clinical indication: Screening examination TECHNIQUE: Imaging protocol: Bilateral Screening tomosynthesis and 2D mammography including computer-aided detection (CAD) when performed. COMPARISON: No relevant prior studies available. FINDINGS: MAMMOGRAPHY: Breast composition: There are scattered areas of fibroglandular density. Mass: None. Architectural distortion: None. Calcifications: No suspicious calcifications. Asymmetric density: None. Skin thickening: None. Axillary adenopathy: None. IMPRESSION: No mammographic evidence of malignancy. Annual screening is recommended unless otherwise clinically indicated. ASSESSMENT: BI-RADS Category 1: Negative
== END 2023-06-18 23:59 | disposition home or self-care (01) ==
PROVIDERS: PCP Nurse Practitioner Family; Visit Provider Nurse Practitioner Family
DX: R00.0 Tachycardia, unspecified (principal); I10 Essential (primary) hypertension; E11.9 Type 2 diabetes mellitus without complications; E78.5 Hyperlipidemia, unspecified; R53.83 Other fatigue; Z12.31 Encounter for screening mammogram for malignant neoplasm of breast; Z72.0 Tobacco use; Z79.4 Long term (current) use of insulin
CPT/HCPCS: 75571; 75574; 77063; 77067; 93306; Q9967

== ENCOUNTER 2023-07-24 09:21 | Outpatient (CLI) | payer BC, SELFPAY ==
--- NOTE | 2023-07-24 09:22 | MR_ITS ---
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 Software platform sequences were performed using the Siemens BetaStudios MR B19 platform. A set of three-plane, low-resolution, large [id number] localizers were initially acquired. Then axial, coronal, sagittal TrueFISP, as well as axial HASTE images, were obtained. These were followed by gated TrueFISP breathold cinematic sequences obtained in the short axis with 8 mm slices and 2 mm gaps, 2-chamber (vertical long axis), 3-chamber, 4-chamber (horizontal long axis). A bolus of contrast was injected intravenously with first-pass sequences obtained in the short axis and four-chamber planes. After approximately 10 minutes, a TI lymphedema therapist sequence was performed to determine the optimal TI time. Using the optimized TI time, delayed contrast enhancement segmented inversion???recovery TurboFLASH sequences were obtained in the short axis, 2-chamber, 3-chamber, and 4-chamber projections. 2D-velocity phase mapping was performed. Functional parameters were calculated by offline analysis on an independent workstation ([employer], [employer]). Contrast: ProHance??? (Gadoteridol) FINDINGS MORPHOLOGY AND FUNCTION Left ventricle: The left ventricle is normal in size. The indexed left ventricular end-diastolic volume (LVEDVi) is 57 ml/m2 (reference range 57-105 ml/m2 in males, 56-96 ml/m2 in females). Normal left ventricular systolic function is present. There is normal left ventricular wall thickness. There are no regional wall motion abnormalities noted. LVEF is calculated at 63.4% (reference range 57-77%). Right ventricle: The right ventricle is normal in size. The indexed right ventricular end-diastolic volume (RVEDVi) is 51 ml/m2 (reference range 61-121 ml/m2 in males, 48-112 ml/m2 in females). Normal right ventricular systolic function is present. RVEF is calculated at 51.0% (reference range 52-72% in males, 51-71% in females). Atria: The left atrium is normal in size. The maximum indexed left atrial volume is 21 ml/m2 (reference range 26-52 ml/m2 in males, 27-53 ml/m2 in females). The right atrium is normal in size. The maximum indexed right atrial volume is 20 ml/m2 (reference range 18-90 ml/m2). Aorta: The diameter of the aortic annulus is normal, measuring 23 mm (coronal view reference range 21-30 mm in males, 19-27 mm in females). The diameter of the aortic sinus is normal, measuring 29 mm (coronal view reference range 25-42 mm in males, 24-36 mm in females). The diameter of the sinotubular junction is normal, measuring 21 mm (coronal view reference range 18-32 mm in males, 18-28 mm in females). The diameters of the ascending and descending thoracic aorta are normal. Main pulmonary artery: The main pulmonary artery diameter is normal. Pericardium: The pericardial thickness is normal. The pericardial thickness measures 2.0 cm (normal < 4.0 cm). There is no pericardial effusion. VALVES The valvular morphologies in the visualized sequences appear normal. There is no significant valvular stenosis or regurgitation of the mitral, aortic, tricuspid, or pulmonic valve noted visually. Systolic anterior motion of the mitral valve is not visualized. Ratio of pulmonary to systemic flow, Qp:Qs ratio cannot be calculated due to technical difficulty during acquisition of 2D phase contrast imaging TISSUE CHARACTERIZATION Resting Perfusion: Normal myocardial blood flow at rest. No evidence of resting hypoperfusion. Myocardial Fibrosis and/or edema: Normal gadolinium kinetics are present. No evidence of late gadolinium enhancement is noted, consistent with absence of myocardial scarring, infarction, or necrosis. T2-weighted imaging demonstrates no evidence of myocardial edema or inflammation. OTHER No other significant findings are noted. However, this exam is focused on the cardiac structure and function. IMPRESSION Normal LV size with normal LV systolic function. LVEDVi= 57 ml/m2 and LVEF= 63.4%. Normal RV size with normal RV systolic function. RVEDVi= 51 ml/m2 and RVEF= 51.0%. No atrial enlargement. No CMR evidence of myocardial scarring, infarction, or necrosis. No evidence of myocardial edema or inflammation. Perfusion analysis demonstrates normal blood flow at rest with no evidence of resting hypoperfusion. Overall, this CMR demonstrates normal biventricular systolic size and function with no CMR evidence of cardiomyopathy. COMPARISON None CRITICAL RESULT None COMMUNICATION Per this written report The findings of this cardiac MR were reviewed, reported, and signed by Jakub Mckay MD (Casework Supervisor). Conclusion Electronically signed by : Shamika Mckay MD 08/05/2023 00:45:05
[2023-07-24 09:54] LABS: Estimated Glomerular Filt Rate 79 ml/min (>60); GFR (African American) 96 ML/MIN (>60)
[2023-07-24 10:21] LABS: Blood Urea Nitrogen 24 mg/dl (7-17)
[2023-07-24] MEDS: GADOTERIDOL INJ 17ML SYRINGE 16 ML IV (11:24)
[2023-07-24] MEDS: 0.9 % SODIUM CHLORIDE 50 ML VIAL IV (11:24)
[2023-07-24] MEDS: SODIUM CHLORIDE 0.9% 10ML SYR (RAD ONLY) 10 ML IV (11:24)
== END 2023-07-24 23:59 ==
LOC: RAD 09:22
PROVIDERS: PCP Nurse Practitioner Family; Visit Provider Internal Medicine
DX: Q24.5 Malformation of coronary vessels (principal); I10 Essential (primary) hypertension; K21.9 Gastro-esophageal reflux disease without esophagitis; E78.5 Hyperlipidemia, unspecified; F17.290 Nicotine dependence, other tobacco product, uncomplicated; I42.8 Other cardiomyopathies
CPT/HCPCS: 36415; 75561; 82565; 84520; A9576

== ENCOUNTER 2023-09-25 15:56 | Outpatient (CLI) | payer BC, SELFPAY | END 2023-09-25 23:59 | disposition home or self-care (01) | LOC: RT 15:58 | PROVIDERS: PCP Nurse Practitioner Family; Visit Provider Internal Medicine | DX: R00.0 Tachycardia, unspecified (principal) | CPT/HCPCS: 93270 ==

== ENCOUNTER 2023-12-18 16:36 | Outpatient (CLI) | payer BC, SELFPAY ==
[2023-12-18 16:35] LABS: Microscopic, Urine URINE MICROSCOPIC (MICROSCOPIC)
[2023-12-18 17:21] LABS: Basophils # 0.1 K/mm3 (0-0.2); Basophils % 0.9 % (0.1-2.0); Eosinophils # 0.1 K/mm3 (0.0-0.4); Eosinophils % 1.4 % (0.1-12.0); Hematocrit 46.4 % (37.0-47.0); Hemoglobin 15.7 g/dL (12.2-16.2); Lymphocytes # 2.3 K/mm3 (0.7-4.5); Lymphocytes % 27.9 % (10-50); Mean Corpuscular HGB Conc 33.7 g/dL (31.8-35.4); Mean Platelet Volume 10.2 fl (7.4-10.4); Monocytes # 0.4 K/mm3 (0.1-1.0); Monocytes % 5.4 % (1.7-9.3); Neutrophils # 5.2 K/mm3 (1.8-7.8); Neutrophils % 64.4 % (37.0-80.0); Platelet Count 193 K/mm3 (142-424); Red Blood Count 5.04 M/mm3 (4.20-5.40); Red Cell Distribution Width 14.1 % (11.5-17.5); White Blood Count 8.1 K/mm3 (4.8-10.8)
[2023-12-18 17:39] LABS: Alanine Aminotransferase 78 U/L (12-78); Albumin Level 4.5 g/dl (3.5-5.0); Albumin/Globulin Ratio 1.5 (1.1-1.8); Alkaline Phosphatase 118 U/L (38-126); Anion Gap 17.1 mEq/L (5-15); Aspartate Amino Transferase 53 U/L (14-36); Bilirubin,Total 0.5 mg/dl (0.2-1.3); Blood Urea Nitrogen 8 mg/dl (7-17); Carbon Dioxide 27 mmol/L (22.0-30.0); Chloride 94 mmol/L (98-107); Chol/HDL Ratio 7.4 (1-3.5); Cholesterol 319 mg/dl (140-200); Estimated Glomerular Filt Rate 245 ml/min (>60); GFR (African American) 297 ML/MIN (>60); Globulin 3.1 g/dL (1.3-3.2); Glucose 335 mg/dl (74-100); HDL Cholesterol 43 mg/dl (40-60); Potassium 4.1 mmoL/L (3.5-5.1); Sodium 134 mmol/L (136-145); Total Protein,Serum 7.6 g/dl (6.3-8.2)
[2023-12-18 17:50] LABS: Direct LDL Cholesterol 84.77 mg/dL (100-129)
[2023-12-18 17:56] LABS: 25-OH Vitamin D, Total 23.7 ng/mL (30-100)
[2023-12-18 18:09] LABS: Thyroid Stimulating Hormone 0.73 uIU/mL (0.465-4.68)
[2023-12-18 18:27] LABS: Triglycerides 1042 mg/dl (30-150)
[2023-12-18 18:28] LABS: Vitamin B12 794 pg/mL (239-931)
[2023-12-18 18:45] LABS: Hemoglobin A1C 9.9 % (4.0-6.0)
[2023-12-18 19:32] LABS: Appearance,Urine CLEAR (Clear); Bilirubin,Urine Negative (Negative); Blood, Urine Negative (Negative); Color,Urine YELLOW (Yellow); Glucose,Urine (UA) 3+ (Negative); Ketones,Urine Negative (Negative); Leukocyte Esterase,Urine Negative (Negative); Nitrate,Urine Negative (Negative); PH,Urine 5.5 (5.0-8.5); Protein,Urine Negative (Negative); Urobilinogen,Urine 0.2 EU/dl (0.2)
[2023-12-18 23:45] LABS: Free T4 (Free Thyroxine) 1.25 ng/dl (0.78-2.19)
== END 2023-12-18 23:59 | disposition home or self-care (01) ==
LOC: LAB.DROPOF 16:37
PROVIDERS: PCP Nurse Practitioner Family; Visit Provider Nurse Practitioner Family
DX: R53.83 Other fatigue (principal); I10 Essential (primary) hypertension; E11.40 Type 2 diabetes mellitus with diabetic neuropathy, unspecified; Z79.4 Long term (current) use of insulin; Z79.84 Long term (current) use of oral hypoglycemic drugs; E78.5 Hyperlipidemia, unspecified; G47.00 Insomnia, unspecified; Z72.0 Tobacco use
CPT/HCPCS: 80050; 80053; 80061; 81001; 82306; 82607; 83036; 84156; 84439; 84443; 85025; 87086

== ENCOUNTER 2025-01-20 12:25 | Outpatient (CLI) | payer BC, SELFPAY ==
[2025-01-20 13:53] LABS: Microscopic, Urine URINE MICROSCOPIC (MICROSCOPIC)
[2025-01-20 14:13] LABS: Bilirubin,Urine Negative (Negative); Color,Urine YELLOW (Yellow); Glucose,Urine (UA) 2+ (Negative); Ketones,Urine 3+ (Negative); Leukocyte Esterase,Urine Negative (Negative); PH,Urine 5.5 (5.0-8.5); Protein,Urine Negative (Negative); Specific Gravity, Urine 1.020 (1.005-1.030); Urobilinogen,Urine 0.2 EU/dl (0.2)
[2025-01-20 14:29] LABS: Bacteria,Urine 1+ /lpf
[2025-01-20 15:22] LABS: Hematocrit 44.2 % (37.0-47.0); Hemoglobin 15.2 g/dL (12.2-16.2); Immature Granulocytes % 0.4 %; Mean Corpuscular HGB Conc 34.4 g/dL (31.8-35.4); Mean Corpuscular Hemoglobin 30.8 pg (27.0-31.2); Mean Corpuscular Volume 89.7 fl (81-99); Nucleated Red Blood Cells % 0 %; Platelet Count 205 K/mm3 (142-424); Red Blood Count 4.93 M/mm3 (4.20-5.40); Red Cell Distribution Width-SD 38.7 fL; White Blood Count 7.3 K/mm3 (4.8-10.8)
[2025-01-20 16:00] LABS: Hemoglobin A1C 12.2 % (4.0-6.0)
[2025-01-20 16:01] LABS: Albumin Level 4.8 g/dl (3.5-5.0); Chloride 96 mmol/L (98-107); Sodium 132 mmol/L (136-145)
[2025-01-20 16:02] LABS: Potassium 4.3 mmoL/L (3.5-5.1)
[2025-01-20 16:04] LABS: Alanine Aminotransferase 29 U/L (12-78); Albumin/Globulin Ratio 1.8 (1.1-1.8); Alkaline Phosphatase 93 U/L (38-126); Anion Gap 14.3 mEq/L (5-15); Aspartate Amino Transferase 27 U/L (14-36); Bilirubin,Total 0.9 mg/dl (0.2-1.3); Blood Urea Nitrogen 12 mg/dl (7-17); Calcium 9.8 mg/dl (8.4-10.2); Carbon Dioxide 26 mmol/L (22.0-30.0); Creatinine,Serum 0.30 mg/dl (0.52-1.04); Estimated Glomerular Filt Rate 244 ml/min (>60); GFR (African American) 295 ML/MIN (>60); Globulin 2.7 g/dL (1.3-3.2); Glucose 298 mg/dl (74-100); Iron 100 ug/dL (37-170); Total Protein,Serum 7.5 g/dl (6.3-8.2)
[2025-01-20 16:05] LABS: HDL Cholesterol 51 mg/dl (40-60)
[2025-01-20 16:09] LABS: Triglycerides 510 mg/dl (30-150)
[2025-01-20 16:23] LABS: Free T4 (Free Thyroxine) 1.32 ng/dl (0.78-2.19); Total Iron Binding Capacity 305 ug/dL (265-497)
[2025-01-20 16:24] LABS: Cholesterol 331 mg/dl (140-200)
[2025-01-20 16:37] LABS: Thyroid Stimulating Hormone 0.44 uIU/mL (0.465-4.68)
[2025-01-20 16:41] LABS: Ferritin 207 ng/ml (6.24-137)
[2025-01-20 16:54] LABS: 25-OH Vitamin D, Total < 12.8 ng/mL (30-100)
[2025-01-20 16:55] LABS: Vitamin B12 623 pg/mL (239-931)
== END 2025-01-20 23:59 | disposition home or self-care (01) ==
LOC: LAB.DROPOF 01-21 12:48
PROVIDERS: PCP Nurse Practitioner Family; Visit Provider Nurse Practitioner Family
DX: K21.9 Gastro-esophageal reflux disease without esophagitis (principal); E78.5 Hyperlipidemia, unspecified; I10 Essential (primary) hypertension; G47.00 Insomnia, unspecified; E11.42 Type 2 diabetes mellitus with diabetic polyneuropathy; R00.0 Tachycardia, unspecified; R74.8 Abnormal levels of other serum enzymes; E78.1 Pure hyperglyceridemia; F41.9 Anxiety disorder, unspecified; E88.810 Metabolic syndrome; G47.33 Obstructive sleep apnea (adult) (pediatric)
CPT/HCPCS: 80053; 80061; 81001; 82043; 82306; 82570; 82607; 82728; 83036; 83540; 83550; 84156; 84439; 84443; 85025; 87086

== ENCOUNTER 2025-04-13 14:36 | Outpatient (CLI) | payer BC, OTHER, SELFPAY ==
[2025-04-13 13:35] LABS: Microscopic, Urine URINE MICROSCOPIC (MICROSCOPIC)
[2025-04-13 14:02] LABS: Bilirubin,Urine Negative (Negative); Color,Urine YELLOW (Yellow); Glucose,Urine (UA) 3+ (Negative); Ketones,Urine TRACE (Negative); Leukocyte Esterase,Urine Negative (Negative); PH,Urine 5.5 (5.0-8.5); Protein,Urine Negative (Negative); Specific Gravity, Urine 1.025 (1.005-1.030); Urobilinogen,Urine 0.2 EU/dl (0.2)
[2025-04-13 14:41] LABS: WBC,Urine Occasional #/hpf (0-3)
[2025-04-13 14:42] LABS: Amorphous Sediment,Urine 1+ /lpf
[2025-04-13 14:52] LABS: Hemoglobin A1C 7.3 % (4.0-6.0)
[2025-04-13 15:18] LABS: Alanine Aminotransferase 27 U/L (12-78); Albumin Level 4.8 g/dl (3.5-5.0); Albumin/Globulin Ratio 2.2 (1.1-1.8); Alkaline Phosphatase 36 U/L (38-126); Anion Gap 11.9 mEq/L (5-15); Aspartate Amino Transferase 40 U/L (14-36); Bilirubin,Total 0.6 mg/dl (0.2-1.3); Blood Urea Nitrogen 20 mg/dl (7-17); Calcium 9.8 mg/dl (8.4-10.2); Carbon Dioxide 27 mmol/L (22.0-30.0); Chloride 98 mmol/L (98-107); Cholesterol 147 mg/dl (140-200); Creatinine,Serum 0.60 mg/dl (0.52-1.04); Estimated Glomerular Filt Rate 110 ml/min (>60); GFR (African American) 133 ML/MIN (>60); Globulin 2.2 g/dL (1.3-3.2); Glucose 105 mg/dl (74-100); HDL Cholesterol 51 mg/dl (40-60); Iron 108 ug/dL (37-170); Potassium 3.9 mmoL/L (3.5-5.1); Sodium 133 mmol/L (136-145); Total Protein,Serum 7.0 g/dl (6.3-8.2); Triglycerides 148 mg/dl (30-150)
[2025-04-13 15:29] LABS: Total Iron Binding Capacity 411 ug/dL (265-497)
[2025-04-13 15:33] LABS: 25-OH Vitamin D, Total 45.6 ng/mL (30-100)
[2025-04-13 15:35] LABS: Free T4 (Free Thyroxine) 1.37 ng/dl (0.78-2.19)
[2025-04-13 15:54] LABS: Thyroid Stimulating Hormone 0.49 uIU/mL (0.465-4.68)
[2025-04-13 15:57] LABS: Ferritin 280 ng/ml (6.24-137)
== END 2025-04-13 23:59 | disposition home or self-care (01) ==
LOC: LAB.DROPOF 14:37
PROVIDERS: PCP Nurse Practitioner Family; Visit Provider Nurse Practitioner Family
DX: E78.5 Hyperlipidemia, unspecified (principal); I10 Essential (primary) hypertension; G62.9 Polyneuropathy, unspecified; G47.00 Insomnia, unspecified; E11.40 Type 2 diabetes mellitus with diabetic neuropathy, unspecified; R79.89 Other specified abnormal findings of blood chemistry; R53.83 Other fatigue; R74.8 Abnormal levels of other serum enzymes; E78.1 Pure hyperglyceridemia; G47.33 Obstructive sleep apnea (adult) (pediatric); R41.3 Other amnesia
CPT/HCPCS: 80053; 80061; 81001; 82043; 82306; 82570; 82728; 83036; 83540; 83550; 84439; 84443; 87086